=== PATIENT | female | born 1985 | race Caucasian/White ===

== ENCOUNTER → 2022-05-24 | Outpatient (CLI) | payer MEDICAID, SELFPAY ==
[2022-05-24 16:13] LABS: AST(SGOT) 19 U/L (15-37); Alanine Aminotransfer ALT/SGPT 20 U/L (13-56); Albumin, Serum 3.5 g/dL (3.2-5.0); Alkaline Phosphatase 88 U/L (45-117); Bilirubin, Direct 0.11 mg/dL (0.00-0.30); Cholesterol 134 mg/dL (200); Globulin 3.6 g/dL (2.2-4.2); High Density Lipoprotein 59 mg/dL; Protein, Total 7.1 g/dL (6.4-8.2); Triglycerides 108 mg/dL; Very Low Density Lipoprotein 22 mg/dL (5-40)
== END | disposition home or self-care (01) ==
PROVIDERS: Visit Provider Internal Medicine Cardiovascular Disease
DX: I25.10 Atherosclerotic heart disease of native coronary artery without angina pectoris (principal)
CPT/HCPCS: 36415; 80061; 80076

== ENCOUNTER → 2022-07-17 | Outpatient (CLI) | payer MEDICAID, SELFPAY ==
--- NOTE | 2022-07-17 06:37 | ECHOD_ITS ---
Reason For Study: CAD/ASHD Procedure This was a 2D Doppler, Color Flow transthoracic echocardiogram. Myocardial strain analysis was performed in this exam to aid in the assessment of cardiac function. Exam performed in department. Left Ventricle Normal LV size. Left ventricular systolic function is normal. The estimated ejection fraction is 60 %. Normal diastology for age. No regional wall motion abnormalities noted. Right Ventricle Normal RV size. Normal systolic function. Atria Normal left atrium. Normal right atrium. Mitral Valve Normal mitral valve. Tricuspid Valve Normal tricuspid valve. Aortic Valve Trisinus/trileaflet aortic valve. Pulmonic Valve Normal pulmonic valve. Great Vessels Normal aortic root. The pulmonary artery is normal size. Normal inferior vena cava. Pericardium/Pleural No pericardial effusion. MMode/2D Measurements & Calculations LVIDd: 4.7 cm IVSd: 0.98 cm LA dimension: 3.9 cm LVIDs: 3.5 cm LVPWd: 0.78 cm RVDd: 2.7 cm FS: 25.0 % LAV(MOD-bp): 34.5 ml LVAd ap4: 29.1 cm2 SV(MOD-sp4): 55.9 ml LAV(MOD-bp) Indexed: 21.0 ml/m2 LVLd ap4: 8.0 cm LAV(MOD-sp2): 36.0 ml EDV(MOD-sp4): 86.0 ml LAV(MOD-sp4): 32.0 ml EDV(sp4-el): 90.1 ml LVAs ap4: 15.8 cm2 LVLs ap4: 7.0 cm ESV(MOD-sp4): 30.1 ml ESV(sp4-el): 30.3 ml EF(MOD-sp4): 65.0 % EF(sp4-el): 66.3 % SV(sp4-el): 59.8 ml LA A4 area: 13.9 cm2 RA A4 area: 9.1 cm2 Time Measurements MV dec time: 0.18 sec Doppler Measurements & Calculations MV E max lenny: 129.6 cm/sec Lat Peak E' Lenny: 16.7 cm/sec Med Peak E' Lenny: 12.6 cm/sec MV A max lenny: 39.1 cm/sec E/E' lat: 7.8 E/E' med: 10.3 MV E/A: 3.3 MV V2 max: 132.6 cm/sec MV P1/2t max lenyn: 134.7 cm/sec Ao V2 max: 122.6 cm/sec MV max P.0 mmHg MV P1/2t: 61.6 msec Ao max P.0 mmHg MV V2 mean: 59.5 cm/sec Ao V2 mean: 83.0 cm/sec MV mean P.8 mmHg MV dec slope: 640.3 cm/sec2 Ao mean P.2 mmHg MV V2 VTI: 40.8 cm MVA(P1/2t): 3.6 cm2 Ao V2 VTI: 30.7 cm AV (velocity ratio): 0.73 LV V1 max: 89.7 cm/sec PA V2 max: 96.1 cm/sec LV V1 max P.2 mmHg LV V1 mean P.7 mmHg LV V1 mean: 61.2 cm/sec LV V1 VTI: 22.5 cm ECHO/Echo Complete Interpretation Summary Normal LV size. Left ventricular systolic function is normal. The estimated ejection fraction is 60 %. Structurally normal valves. The global longitudinal strain is normal. The globa l longitudinal strain = -20.6 % (normal). Ordering Physician: John Paul Gtz Referring Physician: John Paul Gtz Performed By: Derek Fleming RCS
--- NOTE | 2022-07-17 13:27 | STRESSREP ---
Stress Test Report Exercise myocardial perfusion stress test. 37-year-old lady with a history of premature coronary artery disease status post coronary bypass surgery Stress protocol: Resting EKG demonstrates normal sinus rhythm with a rate of 60 bpm resting blood pressure is 114/70 mmHg. The patient exercised according to the regular Osito protocol for a total duration of 6 minutes and 32 seconds attaining a maximum heart rate of 127 bpm which was 69% of maximum predicted heart rate; the maximum workload was 8.6 metabolic equivalents. At rest there were no ST or T wave changes noted to suggest ischemia and at stage II of exercise there was approximately 2.5 to [address] depression noted in leads II, III and aVF and [address] depression noted in V5 V6 and [address] elevation noted in aVR. The test was immediately discontinued and EKG changes returned rapidly to baseline. Patient had complained of mild chest discomfort with exercise which dissipated almost immediately. The peak blood pressure was 160/70 and a final blood pressure of 128/72 mmHg. Rate-pressure product was 16,300. Myocardial perfusion protocol. 11.9 mCi of technetium 99m sestamibi was injected at rest. The patient exercised according to regular Osito protocol for total duration of 6 minutes and 32 seconds and at peak exercise to 3.3 mCi of technetium 99m sestamibi was injected stress images were obtained stress and rest images were reconstructed in comparing the short axis vertical long and horizontal long axis. Gated images were also obtained. Perfusion SPECT analysis: Review of the stress images demonstrate normal uptake of tracer noted in all areas of the myocardium. The resting images similarly demonstrate normal uptake of tracer noted in all areas of the myocardium. No areas of reversibility are noted to suggest ischemia no previous infarct was noted. Gated SPECT analysis: The gated ejection fraction is 70%. Conclusion: Normal perfusion stress test with significant EKG changes suggestive of ischemia at a moderate workload. Preserved ejection fraction
== END | disposition home or self-care (01) ==
LOC: CVS 06:32
PROVIDERS: Referring Provider Internal Medicine Cardiovascular Disease; Visit Provider Internal Medicine Cardiovascular Disease
DX: I25.10 Atherosclerotic heart disease of native coronary artery without angina pectoris (principal); E78.5 Hyperlipidemia, unspecified; Z95.1 Presence of aortocoronary bypass graft
CPT/HCPCS: 78452; 93017; 93306; A9500; A4216

== ENCOUNTER 2022-07-21 10:59 | Day surgery (SDC) | payer MEDICAID, SELFPAY ==
--- NOTE | 2022-07-19 15:20 | HP.PCM_ITS ---
History and Physical Date of Admission: 07/21/22
--- NOTE | 2022-07-19 15:20 | PCM.HP.BLA ---
History and Physical Date of Admission: 07/21/22 This is a pleasant 37-year-old lady who presents to the [facility] today for a cardiac catheterization. She has a history of coronary artery disease. She was in [facility] 3 years ago developed chest discomfort and was noted to have marked T wave inversions and was taken urgently to cardiac catheterization.? It reviewed an 80 to 90% stenosis of the left main trunk right coronary artery was dominant.? She had a prophylactic intra-aortic balloon pump placed and then underwent coronary bypass surgery with a left internal mammary artery to the left anterior descending artery and a saphenous vein graft to the first obtuse marginal branch.? She has apparently done well since then but has had occasional chest discomfort.? She continues to be compliant with her medications.? She still unfortunately uses some tobacco products.? She has had no dizziness or diaphoresis no near syncope or syncope.? Her ejection fraction was apparently preserved at the time of the event.? Her physical exam right now demonstrates clear lung lucas regular rate and rhythm and no pedal edema. Intake Vital Signs: See EMR Allergies: See EMR Medications: See EMR Ejection fraction %: 55 to 59 PFSH Medical History? Anemia Bipolar 1 disorder CAD (coronary artery disease) Hyperlipidemia Migraine Surgical History?(Updated 05/24/22 @ 14:[address] John Paul Gtz MD) H/O tubal ligation Hx of coronary artery bypass graft (~03/2019) Hx of cystoscopy (~03/2007) Family History? Grandfather Hypertension CVA (cerebral vascular accident)Grandmother Hypertension CVA (cerebral vascular accident)Father Cancer HypertensionMother Bleeding disorderSon Von Willebrand disease Social History? Smoking Status:? Current every day smoker alcohol intake:? current substance use type:? does not use ROS Const Const: Negative for fatigue, weakness, headache(s), frequent falls, difficulty sleeping or excessive sweating Eyes Eyes: Negative for loss of peripheral vision, transient loss of vision, blurry vision, double vision or tunnel vision ENT ENT: Negative for headache(s), dizziness, Nosebleed/epistaxis or balance problems Cardio Chest Pain: Yes Frequency: weekly Character: dull Onset: other (stress) Relieving: rest (relaxation) Palpitations: No Edema: None Muscle aches with walking: None Resp Respiratory: Positive for SOB with activity; Negative for SOB at rest, SOB orthopnea\SOB lying down, Cough or paroxysmal nocturnal dyspnea GI GI: Negative nausea, vomiting or heartburn : Negative for hematuria Musc Musc: Negative for muscle aches/ myalgia, muscle weakness, joint pain or balance problems Skin Skin: Negative non-healing lesions, rash or unusual bruising Neuro Neuro: Negative for dizziness, lightheadedness, near syncope, syncope, orthostatic symptoms, frequent falls, headache(s), weakness, confusion, memory loss, blurry vision, double vision, vertigo or lack of coordination Ethan Hematologic/Lymphatic: Negative for easy bleeding or easy bruising Endo Endo: Negative for fatigue, excessive sweating, flushing or increased thirst/drinking Psych Psych: Negative for anxiety or depression Allergy Allergy/Immunology: Negative for hives and Negative for rash Cardiology Exam Const Appearance: cooperative, healthy appearing, no acute distress, well developed and well groomed Nutritional Appearance: average body habitus and well nourished Orientation: alert, awake and oriented x3 Head Head: normal to inspection, normocephalic and atraumatic Ears: hearing grossly normal bilaterally and external ears normal Nose: external nose normal, nares normal, nasal mucous membranes and turbinates normal, septum normal and no nasal discharge Face and Sinus: face symmetric Mouth: oral mucosae normal, tongue normal, oropharynx normal and moist mucous membranes Teeth and gingiva: dentition normal Throat: posterior oropharynx normal, tonsils normal and uvula midline Eyes General: appearance normal, both eyes and all related structures Eyelids: eyelids normal Conjunctivae: conjunctivae normal Pupils: PERRL, normal by confrontation and accommodation normal EOM: EOM intact bilaterally Neck Neck: normal visual inspection, trachea midline and no JVD JVD: +5 Carotids: normal carotid upstroke and bounding pulses Chest Chest inspection: normal inspection of the chest, symmetric chest movement and normal respiratory effort Auscultation: Bilateral: Clear to Auscultation Cardio Palpation: normal PMI Rate: regular rate Rhythm: regular rhythm Heart sounds: S1 normal, S2 normal and normal, physiologic split S2; Negative rub, gallop or murmur GI GI: normal to inspection, soft, no hepatosplenomegaly and bowel sounds present Neuro General: patient alert, patient awake, patient oriented x3, gait normal, moves all extremities and no focal sensory deficit Skin Skin: no rashes or lesions noted Extremities Pulses: Normal: Right Femoral Pulse, Left Femoral Pulse, Right Dorsalis Pedis Pulse, Left Dorsalis Pedis Pulse, Right Posterior Tibial Pulse, Left Posterior Tibial Pulse, Right Radial Pulse and Left Radial Pulse Lower Extremity Edema: None: Bilateral Musculoskel Musculoskeletal: No joint tenderness Psych Psychological: normal affect Supplemental Info Supplemental Information Stress test 07/17/2022: Exercise myocardial perfusion stress test. 37-year-old lady with a history of premature coronary artery disease status post coronary bypass surgery Stress protocol: Resting EKG demonstrates normal sinus rhythm with a rate of 60 bpm resting blood pressure is 114/70 mmHg. The patient exercised according to the regular Osito protocol for a total duration of 6 minutes and 32 seconds attaining a maximum heart rate of 127 bpm which was 69% of maximum predicted heart rate; the maximum workload was 8.6 metabolic equivalents. At rest there were no ST or T wave changes noted to suggest ischemia and at stage II of exercise there was approximately 2.5 to [address] depression noted in leads II, III and aVF and [address] depression noted in V5 V6 and [address] elevation noted in aVR. The test was immediately discontinued and EKG changes returned rapidly to baseline. Patient had complained of mild chest discomfort with exercise which dissipated almost immediately. The peak blood pressure was 160/70 and a final blood pressure of 128/72 mmHg. Rate-pressure product was 16,300. Myocardial perfusion protocol. 11.9 mCi of technetium 99m sestamibi was injected at rest. The patient exercised according to regular Osito protocol for total duration of 6 minutes and 32 seconds and at peak exercise to 3.3 mCi of technetium 99m sestamibi was injected stress images were obtained stress and rest images were reconstructed in comparing the short axis vertical long and horizontal long axis. Gated images were also obtained. Perfusion SPECT analysis: Review of the stress images demonstrate normal uptake of tracer noted in all areas of the myocardium. The resting images similarly demonstrate normal uptake of tracer noted in all areas of the myocardium. No areas of reversibility are noted to suggest ischemia no previous infarct was noted. Gated SPECT analysis: The gated ejection fraction is 70%. Conclusion: Normal perfusion stress test with significant EKG changes suggestive of ischemia at a moderate workload. Preserved ejection fraction Left Heart Cath 03/05/19 Results: 1) LMCA: patent, 80% mid segment stenosis 2) LAD: patent, no stenosis 3) CX: patient, no stenosis 4) RCA: dominant, patent, no stenosis 5) LV: by echo 6) successful insertion of IABP Echocardiogram 03/06/19 Study Details: Normal LV cavity size and systolic normal left atrium. Ejection fraction is estimated to be 55-60%. Findings consistent with normal diastolic function. Carotid Bilateral Duplex 03/06/19 Impression: No hemodynamic significant stenosis and either carotid system. Peripheral Vascular Study 01/05/21 Final Impression: My impression is this patient does have flow restrictive disease with monophasic flow and diminished amplitude in the right lower extremities. The patient is symptomatic. Recommend angiograms. Assessment and Plan Assessment and Plan (1) Hx of coronary artery bypass graft: ?Status:?Acute ?Plan: She does have a history of coronary artery disease status post coronary bypass grafting as noted above.? She has been having occasional chest discomfort.?She underwent an exercise myocardial perfusion stress test on 07/17/2022 which demonstrated a normal perfusion stress test with significant EKG changes suggestive of ischemia at a moderate workload. She will proceed with a cardiac catheterization to further assess her coronary arteries. Depending on results, further recommendations will be made. (2) Hyperlipidemia: ?Status:?Acute ?Plan: She does have a history of hyperlipidemia and remains on high intensity statin and we will continue the current medical therapy with a statin and a lipid profile performed.
[2022-07-20 10:18] VITALS: BMI 27.4
--- NOTE | 2022-07-20 10:55 | RAD_ITS ---
INDICATION: cad EXAMINATION/TECHNIQUE: X-RAY - XR Chest 2 Views COMPARISON: FINDINGS: LINES/DEVICES: None. LUNGS: No consolidation, edema or effusion. No pneumothorax. MEDIASTINUM AND CARDIOVASCULAR STRUCTURES: Cardiac silhouette not enlarged. Central airways and mediastinal contour are unremarkable. BONES AND SOFT TISSUES: Unremarkable. Status post sternotomy. RAD/Chest PA and Lateral IMPRESSION: Status post sternotomy. No radiographic evidence of acute cardiopulmonary disease. Electronically Signed: Jose Styles MD, MY at 18:32 EDT ,
[2022-07-20 11:34] LABS: Absolute Lymphocyte Count 3.66 X10^3/uL (0.83-4.51); Absolute Neutrophil Count 6.4 X10^3/uL (2.0-7.7); Basophil# 0.05 X10^3/uL; Basophil% 0.5 % (0-1); Eosinophil# 0.26 X10^3/uL; Eosinophils% 2.4 % (0-5); Hematocrit 46.8 % (37-47); Hemoglobin 15.3 g/dL (12.0-15.0); Lymphocyte # 3.66 X10^3/ul (0.83-4.51); Lymphocyte % 33.3 % (19-41); Mean Corp Hgb Conc 32.7 g/dL (32-36); Mean Corpuscular Volume 94.7 fL (81-99); Monocyte# 0.52 X10^3/uL; Monocyte% 4.7 % (0-10); NRBC Flagged by Analyzer 0 % (0-5); Neutrophil # 6.44 X10^3/uL (2.7-7.7); Neutrophil % 58.6 % (47-70); Platelet Count 275 K/mm3 (150-450); RBC Distribution Width CV 13.2 % (11.6-14.6); Red Blood Count 4.94 M/mm3 (4.2-5.4)
[2022-07-20 11:45] LABS: Internal QC Validated? YES +Cl - CLEAR BKGD; Pregnancy, Serum, hCG Quali. NEGATIVE Negative
[2022-07-20 11:49] LABS: Anion Gap 5 (5-15); BUN 13 mg/dL (7-18); BUN/Creat Ratio 21.2 RATIO (10-20); Chloride 108 mmol/L (98-107); Creatinine, Serum 0.61 mg/dL (0.55-1.02); EST Glomerular Filtration Rate 117 mL/min (>60); Est Glom Filt Rate - Afr Amer 142 mL/min (>60); Estimated Creatinine Clearance 100.84 ml/min; Glucose 97 mg/dL (74-106); Potassium 4.5 mmol/L (3.5-5.1); Sodium Level 136 mmol/L (136-145)
--- NOTE | 2022-07-21 16:12 | CL.D_ITS ---
Patient Name: ZORAN BARRIENTOS Study Date: 07/21/2022 Performing: John Paul Gtz MD Ht: 61 inches 154.94 cm : 1985 Wt: 150.2 lbs 68.04 kg Age: 37 Gender: female BSA: 1.67 PROCEDURE(S) PERFORMED DC03-([id number])LHC/COR/LV/CABG [id number] NOT COMPLETED CLINICAL PROFILE AND INDICATIONS Indications: Worsening Angina Heart Failure: None Stress/Imaging Date: 07/10/22Stress Test with SPECT MPI: Positive High Risk CAD Presentations: No Sxs, no angina. CONCLUSIONS Unsuccessful complete left heart catheterization due to significant spasm noted via the left radial approach. MOLINA noted to be occluded. RECOMMENDATIONS Reschedule for left heart catheterization via the right radial or at a tertiary care facility. DESCRIPTION OF PROCEDURE The patient arrived to the procedure lab. The risks and benefits of the procedure as well as a full description of our services here and current unavailability of surgical backup were fully explained to the patient and/or their significant other prior to the catheterization. The Timeout was completed, verifying the correct patient and procedure. The patient's procedural site was prepped and draped in the usual fashion. Local anesthetic was given subcutaneously to left radial region with Lidocaine 2%. Local anesthetic was given subcutaneously to right groin region with Lidocaine 2%. Using a modified Seldinger technique, arterial access was obtained via the left radial artery, a 6Fr sheath was inserted. Left internal mammary artery graft to the LAD selective angiography was performed in multiple views using a 5 Fr. IM catheter.The arterial sheath was pulled and a TR Band was applied for hemostasis CORONARY ANGIOGRAPHY It was very difficult to negotiate past the left subclavian due to significant spasm in the left arm. The patient had been administered a significant amount of sedation including anesthesia administering propofol. It was decided to hold off on the procedure and to perform it again at another date through the right radial. The right femoral artery was noted to be previously occluded. LEFT ANTERIOR DESCENDING ARTERY: GRAFTS: MOLINA graft to the Mid LAD This vessel is noted to be atretic. COMPLICATIONS No Complications PROCEDURE MEDICATIONS Fentanyl 50 mcg IV Versed 1 mg IV Versed 1 mg IV Fentanyl 25 mcg IV Versed 1 mg IV Versed 1 mg IV Fentanyl 25 mcg IV Fentanyl 25 mcg IV Versed 1 mg IV Propofol 30 mg IV Propofol 10 mg IV Propofol 20 mg IV Propofol 20 mg IV Propofol 120 mg IV given by Anant Scott CRNA Oxygen: 2 L/min via nasal cannula Heparin given IA 07/21/2022 12:26:21 Nitro 50 mcg IA 07/21/2022 12:40:36 Nitro 100 mcg IA 07/21/2022 12:45:17 Zofran 2 mg IV 07/21/2022 12:16:34 SUMMARY OF HEMODYNAMIC DATA Time AIR REST ECG 11:20:26 AO 143/96 (117) SA 12:28:25 AIR REST 14:21:23 Signed By John Paul Gtz MD On 07/21/2022 16:12:18 John Paul Gtz MD
== END 2022-07-21 16:10 | disposition home or self-care (01) ==
LOC: CLSP 11:00
PROVIDERS: Referring Provider Internal Medicine Cardiovascular Disease; Visit Provider Internal Medicine Cardiovascular Disease
DX: I25.10 Atherosclerotic heart disease of native coronary artery without angina pectoris (principal); E78.5 Hyperlipidemia, unspecified; F17.200 Nicotine dependence, unspecified, uncomplicated; Z95.1 Presence of aortocoronary bypass graft; Z79.82 Long term (current) use of aspirin; Z79.899 Other long term (current) drug therapy
CPT/HCPCS: 36415; 71046; 80048; 84703; 85025; 93455; 99152; 99153; C1894; J7040; Q9967; C1769; J2405

== ENCOUNTER 2022-08-01 07:00 | Day surgery (SDC) | payer MEDICAID, SELFPAY ==
[2022-08-01] VITALS (14 sets, daily range): BP systolic 81–139; BP diastolic 44–76; PULSE 44–54; RESP 16; TEMP 36.3; O2SAT 97–100; BMI 28.4
[2022-08-01 07:23] LABS: Internal QC Validated? YES +Cl - CLEAR BKGD; Pregnancy, Urine Negative Negative
--- NOTE | 2022-08-01 10:21 | CL.D_ITS ---
Patient Name: ZORAN BARRIENTOS Study Date: 08/01/2022 Performing: John Paul Gtz MD Ht: 62 inches 157.48 cm : 1985 Wt: 150.2 lbs 68.04 kg Age: 37 Gender: female BSA: 1.69 PROCEDURE(S) PERFORMED DC03-([id number])LHC/COR/LV/CABG CLINICAL PROFILE AND INDICATIONS Indications: Suspected CAD Heart Failure: None Stress/Imaging Date: 07/17/22Stress Test with SPECT MPI: Positive High Risk CAD Presentations: Stable angina. CONCLUSIONS Previously occluded MOLINA to the LAD and high-grade ostial left main coronary artery stenosis noted. Right coronary artery and saphenous vein graft to obtuse marginal branch patent. RECOMMENDATIONS We will recommend high risk left main coronary artery stenting versus redo bypass. DESCRIPTION OF PROCEDURE The patient arrived to the procedure lab. The risks and benefits of the procedure as well as a full description of our services here and current unavailability of surgical backup were fully explained to the patient and/or their significant other prior to the catheterization. The Timeout was completed, verifying the correct patient and procedure. The patient's procedural site was prepped and draped in the usual fashion. Local anesthetic was given subcutaneously to right radial region with Lidocaine 2%. Using a modified Seldinger technique, arterial access was obtained via the right radial artery, a 6Fr sheath was inserted. Right Coronary Artery selective angiography was then performed in multiple views using a 5 Fr. 4.0 Haslet catheter. Left Coronary Artery selective angiography was performed in multiple views using a 5 Fr. JL3.5 catheter. Left Ventriculography was performed in VAZQUEZ projection using a 5 Fr. Pigtail catheter. LV to AO pullback pressures were then recorded.The arterial sheath was pulled and a TR Band was applied for hemostasis CORONARY ANGIOGRAPHY DOMINANCE: Right Dominant LEFT HEART ASSESSMENT Left Ventricular Ejection Fraction: by LV Gram 65 % Normal LV wall motion Normal Left Ventricular systolic function LEFT MAIN: Ostial 80% stenosis with dampening of pressure LEFT ANTERIOR DESCENDING ARTERY: No significant disease noted CIRCUMFLEX ARTERY: No significant disease noted RIGHT CORONARY ARTERY: No significant disease noted GRAFTS: MOLINA graft to the LAD is totally occluded Saphenous Vein graft to the 1st OM is patent COMPLICATIONS No Complications PROCEDURE MEDICATIONS Heparin given IA 08/01/2022 09:09:33 Verapamil 2.5mg, Ntg 100mcgs, 3000 units of Heparin given IA 08/01/2022 09:09:33 SUMMARY OF HEMODYNAMIC DATA Time AIR REST ECG 07:24:09 AO 97/60 (76) SA 09:18:21 LV 89/9, 14 09:31:06 LV 86/9, 14 09:31:15 LV 84/9, 15 09:31:57 LV 86/9, 15 09:32:05 LVp 85/11, 15 09:32:11 AOp 93/44 (66) 09:32:19 Signed By John Paul Gtz MD On 08/01/2022 10:21:23 John Paul Gtz MD
== END 2022-08-01 13:21 | disposition home or self-care (01) ==
LOC: SDC 07:00
PROVIDERS: Anesthesiology; Referring Provider Internal Medicine Cardiovascular Disease; Visit Provider Internal Medicine Cardiovascular Disease
PROC: 3E0T3BZ Introduction of Anesthetic Agent into Peripheral Nerves and Plexi, Percutaneous Approach (ICD-10-PCS; principal; 2022-08-01 08:00)
DX: I20.8 Other forms of angina pectoris (principal); E78.5 Hyperlipidemia, unspecified; F17.200 Nicotine dependence, unspecified, uncomplicated; Z95.1 Presence of aortocoronary bypass graft; Z79.82 Long term (current) use of aspirin; Z79.899 Other long term (current) drug therapy; Z82.49 Family history of ischemic heart disease and other diseases of the circulatory system
CPT/HCPCS: 01920; 81025; 93459; J7040; J7120; Q9967; C1769; C1894; J2405

== ENCOUNTER 2022-08-02 10:24 | Observation (INO) | payer MEDICAID, SELFPAY ==
[2022-08-02] VITALS (22 sets, daily range): BP systolic 85–137; BP diastolic 42–79; PULSE 48–72; RESP 12–20; TEMP 36.4–36.6; O2SAT 95–100; BMI 28.4; BMI 28.5
--- NOTE | 2022-08-02 10:30 | EKG12_ITS ---
Test Reason : POST OP Blood Pressure : / mmHG Vent. Rate : 062 BPM Atrial Rate : 062 BPM P-R Int : 138 ms QRS Dur : 090 ms QT Int : 458 ms P-R-T Axes : 068 052 176 degrees QTc Int : 464 ms Normal sinus rhythm ST & T wave abnormality, consider anterolateral ischemia Prolonged QT Abnormal ECG Confirmed by AMBER NAJERA, NELLY ([id number]), school photograph editor ERIKA SNEED ([id number]) on 08/08/2022 8:56:49 AM Referred By: AMBER Confirmed By:NELLY CLARK MD
--- NOTE | 2022-08-02 10:36 | CL.I_ITS ---
Patient Name: ZORAN BARRIENTOS Study Date: 08/02/2022 Performing: Nilesh Lozoya MD Ht: 61 inches 154.94 cm : 1985 Wt: 150.51 lbs 68.27 kg Age: 37 Gender: female BSA: 1.67 PROCEDURE(S) PERFORMED IC12-([id number])JENNIFER W/WO PTCA, SINGLE CORONARY ARTERY IC08-([id number])IVUS, CORONARY OR GRAFT, INITIAL VESSEL CLINICAL PROFILE AND CO-MORBIDITIES Indications: Other Heart Failure: None Angina Classification Anginal Classification w/in 2 Weeks: CCS III CAD Presentations: Stable angina. CONCLUSIONS post-dilated using 4.0 mm balloon Final Post-IVUS showed excellent stent apposition RECOMMENDATIONS ASA Indefinitley Brilinta for at least 12 months Risk factor modification DESCRIPTION OF PROCEDURE The patient arrived to the procedure lab. The risks and benefits of the procedure as well as a full description of our services here and current unavailability of surgical backup were fully explained to the patient and/or their significant other prior to the catheterization. The Timeout was completed, verifying the correct patient and procedure. The patient's procedural site was prepped and draped in the usual fashion. Local anesthetic was given subcutaneously to right radial region with Lidocaine 2%. Using a modified Seldinger technique, arterial access was obtained via the right radial artery, a 6Fr sheath was inserted.. JL 3.0 Guide catheter was inserted and engaged into the LCA. XB 2.5 Guide catheter was inserted and engaged into the LCA. runthrough Guide wire was advanced to the LAD. 3.0 x 8 medtronic giselle Drug Eluting stent was advanced across the lesion in the left main mid Angiogram performed post stent deployment. giselle 3.0 x 8 Drug Eluting stent was advanced across the lesion in the left main, mid mid IVUS pullback recording was performed on the left main for post PCI assessment. 4.0 x 8 NC Emerge Balloon catheter was inserted post stent. 5.0 x 8 NC Emerge Balloon catheter was inserted post stent. Angiogram performed post balloon dilatation. The arterial sheath was pulled and a TR Band was applied for hemostasis INTERVENTION INFORMATION LESION SITE: Left Main (Mid) Lesion Complexity: Non-High/Non-C, lesion length: 14 mm Pre Stenosis: 90 % Pre intervention MARIA ANTONIA flow: 3 PROCEDURE: Drug Eluting Stent with post dilatation, IVUS for post stent evaluation Post Stenosis: 0 % Post intervention MARIA ANTONIA flow: 3 Lesion Devices: Medtronic 6 Fr JL3.5 100cm Guide Catheter Terumo .014 180cm Runthrough Extra Floppy straight Medtronic 6 Fr JL3.0 100cm Guide Catheter Cordis 6 Fr XB2.5 VBT 100cm Guide Catheter Medtronic Resolute Giselle RX JENNIFER 3.0x08 STEGOSYSTEMS (volcano) Coronary IVUS Catheter Medtronic Resolute Giselle RX JENNIFER 3.0x08 [employer] NC EMERGE MR 4.00x08 BALLOON Wagner [employer] NC EMERGE MR 5.00x08 BALLOON COMPLICATIONS No Complications PROCEDURE MEDICATIONS Brilinta 180 mg PO @ 08/02/2022 07:36:23 Heparin 5000 unit(s) IV 08/02/2022 09:27:08 Heparin given IA 08/02/2022 09:27:31 Nitro 100 mcg IC 08/02/2022 09:45:41 Nitro 50 mcg IC 08/02/2022 09:56:18 Nitro 50 mcg IC 08/02/2022 10:09:03 Verapamil 2.5mg, Ntg 200mcgs, 2000 units of Heparin given IA 08/02/2022 09:27:31 SUMMARY OF HEMODYNAMIC DATA Time AIR REST ECG 07:38:16 AO 115/73 (93) SA 09:32:22 10:33:06 Signed By Nilesh Lozoya MD On 08/02/2022 10:35:33 Nilesh Lozoya MD
[2022-08-02] MEDS: 0.9% Normal Saline 1,000 ML 150 ML IV (11:15)
[2022-08-02 11:23] LABS: ACT Activated Clotting Time 444 sec (74-137)
[2022-08-02 11:24] LABS: ACT Activated Clotting Time 275 sec (74-137)
--- NOTE | 2022-08-02 13:21 | CRPH1.INST_ITS ---
General Education CAD and cardiac anatomy and function:: Patient communicates acknowledgment, Family communicates acknowledgment, Needs reinforcement Explanation of diagnoses and procedures:: Patient communicates acknowledgment, Family communicates acknowledgment, Needs reinforcement Sign/Symptoms of [place]:: Patient communicates acknowledgment, Family communicates acknowledgment, Needs reinforcement Antiplatelet therapy: Patient communicates acknowledgment, Family communicates acknowledgment, Needs reinforcement Proper use of NTG-SL: Patient communicates acknowledgment, Family communicates acknowledgment, Needs reinforcement Emergency procedures and activation of EMS: Patient communicates acknowledgment, Family communicates acknowledgment, Needs reinforcement Compliance of all prescribed medications: Patient communicates acknowledgment, Family communicates acknowledgment, Needs reinforcement Smoking Patient Nicotine/Smoking Risk Factors Are:: Cigarettes Recommendations Include:: Smoking cessation strategies/Smoking packet, Second- hand smoke recommendation, Participation in a smoking cessation program Nicotine/Smoking Response Code:: Patient communicates acknowledgment, Family communicates acknowledgment, Needs reinforcement Dyslipidemia Recommendations Include:: Lipid profile not available Overweight/Obesity Patient Overweight/Obesity Risk Factors Are:: Overweight = 26-29 Recommendations Include:: Weight loss of 5-10%, Reduced calorie diet, Exercise 5-7 times/week Overweight/Obesity:: Patient communicates acknowledgment, Needs reinforcement Hypertension Recommendations Include:: Maintain BP <130/85, DASH dietary guidelines, Decrease/maintain normal body weight, Moderation of ETOH Hypertension:: Patient communicates acknowledgment, Family communicates acknowledgment, Needs reinforcement Heart Disease Patient Heart Disease Risk Factors Are:: Previous cardiac event Recommendations Include:: Educated family members of their risk, Educated family members of importance of prevention of heart disease Heart Disease Response Code:: Patient communicates acknowledgment, Family communicates acknowledgment, Needs reinforcement Sedentary Patient Sedentary Risk Factors Are:: Lack of regular exercise Recommendations Include:: Aerobic exercise 5-7 times/week for 20-30 minutes continuously, Benefits of regular exercise, Discussed home walking program, Monitored Outpatient Cardiac Rehab Sedentary Response Code:: Patient communicates acknowledgment, Family communicates acknowledgment, Needs reinforcement
--- NOTE | 2022-08-02 13:21 | CRPHASE1 ---
Patient Communication PHII Cardiac Rehab Discussed with Patient:: Yes Guide to Cardiac Rehab Given to Patient:: Yes Cardiac Rehab Facility Choice List Given to Patient:: Yes Choice Program [facility] CR PHII:: Communication Given to CR Colorer:: Nilesh Lozoya Phase II Cardiac Rehab:: Yes Sessions:: 36 sessions - 3 days/wk, 12 weeks Cardiac Rehabilitation Info Cardiac Rehabilitation Program Information: Cardiac Rehab The cardiac rehab team at [facility] consists of highly skilled exercise physiologists, nurses, respiratory therapists and physicians working together with you. Our purpose is to help you have a full recovery and achieve the goals you set for yourself. Over the years many of our patients have returned to activities they assumed they would never do again! We can help restore your confidence and motivation to make lifestyle changes that can have a significant impact on your health and quality of life! We can help answer questions and concerns you may have about exercise, lifestyle, medications, diet, stress and anxiety which are common following a hospitalization. WE monitor ECG and vital signs during exercise and discuss your progress with you and report to your physician(s). Cardiac Rehab is proven to help reduce readmissions, improve functional capacity and lower recurrence of problems with your heart. Our Cardiac Rehab program is Certified by the [place] [employer]monary [employer] (AACVPR) and Accredited by the [place] [employer] through our [facility]. You can contact us at . We invite you to call us with your questions or to get started in our program. If you have other questions or concerns be sure to ask your physician/provider during your follow-up visit. WE look forward to seeing you!
--- NOTE | 2022-08-02 15:51 | NURSING ---
08/02/22@1230- TR BAND REMOVED. NO ACTIVE BLEEDING NOTED BUT SMALL DIMED SIZED HEMATOMA NOTED TO PUNCTURE SITE. PT STARTED C/O SEVERE PAIN TO RIGHT ARM MOST SPECIFICALLY THE RIGHT BICEP. BRUSING AND HEMATOMA NOTED TO RIGHT INNER BICEP. CHARGE NURSE HANK RN NOTIFIED AND HELD PRESSURE/ STARTED MASSAGING HEMATOMA WHILE THIS NURSE PAGED DR. CRABTREE AT [address] CRABTREE AT 1239 REQUESTED FOR A TOP FORMER NURSE TO COME TO BEDSIDE TO ASSIST THIS RN. 1245- DIONNE RN FROM [facility] FORMER ARRIVED AND HELD PRESSURE VIA MANUAL BP CUFF FROM 1248 TILL 1308. PAIN AND SWELLING NOTED TO BE SIGNIFICANTLY LESS. WILL CONTINUE TO MONITOR.
--- NOTE | 2022-08-02 15:58 | NURSING ---
08/02/22@1400- DIONNE COOL FROM [employer] CAME TO BEDSIDE AGAIN AFTER PT STARTED C/O INCREASING PAIN TO RIGHT BICEP. ADDITIONAL MANUAL PRESSURE WAS HELD VIA MANUAL BP CUFF FOR 30 MINS. AFTERWARDS PTS ARM WAS ACEWRAPPED. WILL CONTINUE TO MONITOR.
[2022-08-02] MEDS: buprenorphine HCL 8 MG TAB.SUBL 4 MG SL (16:16)
[2022-08-02] MEDS: Atorvastatin Calcium 20 MG Tablet PO (21:49)
[2022-08-02] MEDS: Metoprolol Tartrate 25 MG Tablet PO (21:49)
[2022-08-02] MEDS: TICAGRELOR 90 MG TABLET PO (21:50)
[2022-08-02] MEDS: Zolpidem Tartrate 5 MG Tablet PO (23:21)
[2022-08-03 05:50] VITALS: BMI 28.2
[2022-08-03 06:00] VITALS: BP 130/68; PULSE 70; RESP 17; TEMP 36.6; O2SAT 98
[2022-08-03 06:23] LABS: Hematocrit 39.7 % (37-47); Hemoglobin 13.3 g/dL (12.0-15.0); Mean Corp Hgb Conc 33.5 g/dL (32-36); Mean Corpuscular Volume 92.5 fL (81-99); Mean Platelet Vol. 10.5 fl (6.2-12.0); Platelet Count 250 K/mm3 (150-450); RBC Distribution Width CV 13.4 % (11.6-14.6); RBC Distribution Width SD 45.8 fl (35.1-43.9); Red Blood Count 4.29 M/mm3 (4.2-5.4); White Blood Count 15.2 K/mm3 (4.4-11.0)
[2022-08-03 06:54] LABS: ALB/GLOB Ratio 0.9 RATIO (0.9-2.4); AST(SGOT) 23 U/L (15-37); Alanine Aminotransfer ALT/SGPT 17 U/L (13-56); Albumin, Serum 2.9 g/dL (3.2-5.0); Alkaline Phosphatase 69 U/L (45-117); Anion Gap 8 (5-15); BUN 7 mg/dL (7-18); BUN/Creat Ratio 11.4 RATIO (10-20); Calcium,Total 7.8 mg/dL (8.5-10.1); Chloride 107 mmol/L (98-107); Creatinine, Serum 0.61 mg/dL (0.55-1.02); EST Glomerular Filtration Rate 117 mL/min (>60); Est Glom Filt Rate - Afr Amer 142 mL/min (>60); Estimated Creatinine Clearance 96.21 ml/min; Globulin 3.1 g/dL (2.2-4.2); Glucose 99 mg/dL (74-106); Potassium 3.7 mmol/L (3.5-5.1); Sodium Level 137 mmol/L (136-145)
[2022-08-03 07:00] VITALS: BP 134/65; PULSE 56; RESP 14; TEMP 36.6; O2SAT 99
[2022-08-03] MEDS: buprenorphine HCL 8 MG TAB.SUBL 4 MG SL (07:06)
[2022-08-03 07:27] VITALS: O2SAT 99
[2022-08-03] MEDS: 0.9% Saline Lock 10 ML Syringe IV (08:02)
[2022-08-03] MEDS: TICAGRELOR 90 MG TABLET PO (08:20)
[2022-08-03] MEDS: Aspirin E.C. 81 MG Tablet PO (08:20)
--- NOTE | 2022-08-03 09:18 | PN.CARD_ITS ---
Subjective Subjective Patient seen and evaluated. Doing well this morning. Objective Data Vital Signs: Vital Signs Temp Pulse Resp BP Pulse Ox O2 Del Method 97.8 F 56 L 14 134/65 H 99 Room Air 08/03/22 07:00 08/03/22 07:00 08/03/22 07:00 08/03/22 07:00 08/03/22 07:27 08/03/22 07:27 Oxygen Delivery Method Room Air Weight: 149 lb 7.574 oz Body Mass Index (BMI) 28.2 Intake & Output: Intake and Output for Last 24 Hours 08/01/22 08/02/22 08/03/22 23:59 23:59 23:59 Intake Total 1112.5 / 1112.5 Balance 1112.5 / 1112.5 Lab / Micro Data Result Diagrams: 08/03/22 05:20 08/03/22 05:20 Labs: Laboratory Results - last 24 hr 08/02/22 09:35: Activated Clotting Time 444 H 08/02/22 10:20: Activated Clotting Time 275 H 08/03/22 05:20: WBC 15.2 H, RBC 4.29, Hgb 13.3, Hct 39.7, MCV 92.5, MCH 31.0, MCHC 33.5, RDW Std Deviation 45.8 H, RDW Coeff of Victoriano 13.4, Plt Count 250, MPV 10.5 08/03/22 05:20: Sodium 137, Potassium 3.7, Chloride 107, Carbon Dioxide 22.0, Anion Gap 8, BUN 7, Creatinine 0.61, Estim Creat Clear Calc 96.21, Est GFR (MDRD) Af Amer 142, Est GFR (MDRD) Non-Af 117, BUN/Creatinine Ratio 11.4, Glu cose 99, Calcium 7.8 L, Total Bilirubin 0.40, AST 23, ALT 17, Alkaline Phosph atase 69, Total Protein 6.0 L, Albumin 2.9 L, Globulin 3.1, Albumin/Globulin Ratio 0.9 Cardiology Labs/Tests 08/03/22 05:20: WBC 15.2 H, RBC 4.29, Hgb 13.3, Hct 39.7, MCV 92.5, MCH 31.0, MCHC 33.5, Plt Count 250, MPV 10.5 06/01/23 05:20: Sodium 137, Potassium 3.7, Chloride 107, Carbon Dioxide 22.0, Anion Gap 8, BUN 7, Creatinine 0.61, Est GFR (MDRD) Af Amer 142, Est GFR (MDRD) Non-Af 117, BUN/Creatinine Ratio 11.4, Glucose 99, Calcium 7.8 L, Total Bilirubin 0.40 Rhythm: EKG: ECHO: Stress Test: Cardiac Cath: PCI: CT Surgery: Holter monitor: EPS: PPM: CXR: Chest CT Scan: Physical Exam Const alert, oriented x3 and no apparent distress General Appearance: cooperative HEENT hearing grossly normal bilaterally Head and Scalp: atraumatic Eyes EOMs intact bilaterally Neck General: normal visual inspection Chest inspection of chest normal and palpation of chest normal Resp normal respiratory effort Auscultation: clear to auscultation bilaterally Cardio regular rate, regular rhythm, S1 normal heart sound and S2 normal heart sound Jugular Venous Distention: JVD GI normal to inspection, nondistended, normoactive bowel sounds Extremity normal capillary refill and no pedal edema Peripheral Pulses: Yes pulses 2+ throughout and femoral pulses present Skin no rashes or lesions noted Neuro oriented x3 and CN's II-XII intact bilaterally Psych Appearance: grossly normal and appropriate Assessment & Plan Assessment/Plan (1) Presence of stent in coronary artery: PLAN: Patient underwent PCI and stenting of the left main coronary artery successfully. Patient is doing well. We will continue with current medical therapy. (2) Hx of coronary artery bypass graft: PLAN: Patient is status post coronary bypass surgery as noted above. MOLINA to the LAD is occluded. Saphenous vein graft is patent. We will continue with medical therapy. Cardiac rehabilitation.
--- NOTE | 2022-08-03 09:22 | DCINST_ITS ---
Discharge Instructions Follow Up Care Please Follow Up With: John Paul Gtz MD When: My office will call for appointment Test Results: Test results from this visit will be discussed in further detail at your follow- up appointment, if applicable. Discharge Plan Admission Admit Date/Time: 08/02/22 10:24 Attending Provider: John Paul Gtz Primary Care Provider: Robert PhysicianSommer Primary Discharge Orders/Prescriptions Prescriptions: New amlodipine 2.5 mg Tablet 2.5 mg PO DAILY Qty: 30 2RF Brilinta 90 mg Tablet 90 mg PO BID Qty: 60 3RF Continued flaxseed oil 1,000 mg capsule 1,000 mg PO DAILY Rx Instructions: administer with a meal buprenorphine HCl 8 mg tablet, sublingual 4 mg sublingual TID aspirin 81 mg tablet,chewable 81 mg PO DAILY Qty: 90 3RF atorvastatin 20 mg tablet 20 mg PO DAILY Qty: 90 3RF metoprolol tartrate 25 mg tablet 25 mg PO BID Qty: 90 3RF isosorbide mononitrate 30 mg Tablet Extended Release 24 Hr 30 mg PO DAILY Referrals / Follow Up: Care Physician,Sommer Primary [Primary Care Provider] - Disposition Disposition (needs filled in before D/C Order can be placed): Home, Self Care
[2022-08-03 09:55] VITALS: BP 117/80; PULSE 67; RESP 18; TEMP 36.6; O2SAT 97
[2022-08-03 09:58] VITALS: BP 117/80; PULSE 67
[2022-08-03] MEDS: Metoprolol Tartrate 25 MG Tablet PO (09:58)
--- NOTE | 2022-08-03 10:00 | EKG12_ITS ---
Test Reason : AM EKG Blood Pressure : / mmHG Vent. Rate : 051 BPM Atrial Rate : 051 BPM P-R Int : 166 ms QRS Dur : 096 ms QT Int : 472 ms P-R-T Axes : 043 066 019 degrees QTc Int : 435 ms Sinus bradycardia Nonspecific ST and T wave abnormality Abnormal ECG When compared with ECG of 02-AUG-2022 13:34, MANUAL COMPARISON REQUIRED, DATA IS UNCONFIRMED Confirmed by AMBER NAJERA, NELLY ([id number]), editor magazine ERIKA SNEED ([id number]) on 08/08/2022 9:11:22 AM Referred By: Confirmed By:NELLY CLRAK MD
--- NOTE | 2022-08-03 10:41 | CASEMGMT ---
SILVINA URENA called [facility] retail pharmacy and has $0 copay for prescriptions.
== END 2022-08-03 09:25 | disposition home or self-care (01) ==
LOC: PCU 11:18
PROVIDERS: Anesthesiology; Admitting Provider Internal Medicine Cardiovascular Disease; Visit Provider Internal Medicine Cardiovascular Disease
PROC: 3E0T3BZ Introduction of Anesthetic Agent into Peripheral Nerves and Plexi, Percutaneous Approach (ICD-10-PCS; principal; 2022-08-02 08:55)
DX: I25.118 Atherosclerotic heart disease of native coronary artery with other forms of angina pectoris (principal); Z95.1 Presence of aortocoronary bypass graft; E78.5 Hyperlipidemia, unspecified; F17.200 Nicotine dependence, unspecified, uncomplicated; Z79.82 Long term (current) use of aspirin; Z79.899 Other long term (current) drug therapy
CPT/HCPCS: C1725 ×2; C1753; C1769 ×3; C1874; C1887 ×2; C1894; 36415; 80053; 85027; 85347; 92928; 92978; 93005; 96360; 96361; 99221; J7030; J7040; Q9967; A4216; C9600; G0378; J2405

== ENCOUNTER → 2024-08-15 | Outpatient (CLI) | payer BC, SELFPAY ==
--- NOTE | 2024-08-15 09:47 | ECHOD_ITS ---
Reason For Study Reason For Study: SHEEHAN Procedure This was a 2D Doppler, Color Flow transthoracic echocardiogram. Exam performed in department. Left Ventricle Normal left ventricle. The left ventricular ejection fraction is 60 %. No regional wall motion abnormalities noted. Right Ventricle Normal RV size. Normal systolic function. Atria Normal left atrium. Normal right atrium. Mitral Valve Normal mitral valve. Tricuspid Valve Normal tricuspid valve. Aortic Valve Trisinus/trileaflet aortic valve. Pulmonic Valve Normal pulmonic valve. Great Vessels Normal aortic root. The pulmonary artery is normal size. Inferior vena cava collapse with respiration. Pericardium/Pleural No pericardial effusion. MMode/2D Measurements & Calculations LVIDd: 4.6 cm IVSd: 0.87 cm LVOT diam: 2.1 cm LVIDs: 3.6 cm LVPWd: 1.1 cm LVOT area: 3.5 cm2 FS: 22.8 % LAV(MOD-bp): 23.0 ml LVAd ap4: 26.2 cm2 SV(MOD-sp4): 40.0 ml LAV(MOD-bp) Indexed: 13.8 ml/m2 LVLd ap4: 8.0 cm SI(MOD-sp4): 23.9 ml/m2 LAV(MOD-sp2): 31.2 ml EDV(MOD-sp4): 70.6 ml LAV(MOD-sp4): 16.6 ml EDV(sp4-el): 72.7 ml LVAs ap4: 15.4 cm2 LVLs ap4: 6.8 cm ESV(MOD-sp4): 30.6 ml ESV(sp4-el): 29.7 ml EF(MOD-sp4): 56.6 % EF(sp4-el): 59.1 % SV(sp4-el): 42.9 ml LA A4 area: 9.4 cm2 LA dimension(2D): 3.5 cm RA A4 area: 10.9 cm2 Time Measurements MV dec time: 0.16 sec Doppler Measurements & Calculations MV E max lenny: 98.9 cm/sec Lat Peak E' Lenny: 20.3 cm/sec Med Peak E' Lenny: 11.4 cm/sec MV A max lenny: 43.3 cm/sec E/E' lat: 4.9 E/E' med: 8.7 MV E/A: 2.3 MV V2 max: 105.4 cm/sec Ao V2 max: 117.4 cm/sec MV max P.4 mmHg MV dec slope: 636.9 cm/sec2 Ao max P.5 mmHg MV V2 mean: 60.8 cm/sec Ao V2 mean: 75.7 cm/sec MV mean P.7 mmHg Ao mean P.7 mmHg MV V2 VTI: 35.6 cm Ao V2 VTI: 26.7 cm AV (velocity ratio): 0.98 MVA(VTI): 2.6 cm2 LETICIA(I,D): 3.5 cm2 LETICIA(V,D): 3.2 cm2 LV V1 max: 107.2 cm/sec SV(LVOT): 93.0 ml LV V1 max P.6 mmHg LV V1 mean P.5 mmHg LV V1 mean: 73.5 cm/sec LV V1 VTI: 26.2 cm ECHO/Echo Complete Interpretation Summary The left ventricular ejection fraction is 60 %. Normal left ventricle. No regional wall motion abnormalities noted. Structurally normal valves. Ordering Physician: Joanne Esteban Referring Physician: Joanne Esteban Performed By: Inez Peters RCS
== END | disposition home or self-care (01) ==
PROVIDERS: Referring Provider Nurse Practitioner Gerontology; Visit Provider Nurse Practitioner Gerontology
DX: R06.09 Other forms of dyspnea (principal)
CPT/HCPCS: 93306